=== PATIENT | male | born 1985 | race Hispanic/Latino ===

== ENCOUNTER 2016-08-07 07:42 | Emergency (ER) | payer OTHER ==
[~2016-08-07] VITALS: Ht 188 cm; Wt 86.2 kg
[~2016-08-07 07:42] MED LIST: DICLOFENAC SODI75 M2 PO; LOTRISONE CREAM15 G1 TOP
[2016-08-07 07:50] VITALS: BP 127/88
[2016-08-07 08:17] LABS: ABSOLUTE BASOPHIL COUNT 0 /CUMM (0.0-0.2); ABSOLUTE EOSINOPHIL COUNT 0.1 /CUMM (0.0-0.7); ABSOLUTE GRANULOCYTE CT 5.9 /CUMM (1.4-6.5); ABSOLUTE MONOCYTE COUNT 0.2 /CUMM (0.10-0.60); BASOPHIL % 0 % (0.0-2.0); EOSINOPHIL % 1.3 % (0-5); HEMATOCRIT 44.5 % (42-52); MEAN CORPUSCULAR HGB 30.8 PG (27.0-31.0); MEAN CORPUSCULAR VOLUME 90.7 FL (80.0-94.0); MEAN PLATELET VOLUME 8.7 FL (7.4-10.4); PLATELET COUNT 191 /CUMM (130-400); RED BLOOD CELL CT 4.91 /CUMM (4.70-6.10); WHITE BLOOD CELL COUNT 7.2 /CUMM (4.8-10.8)
--- NOTE | 2016-08-07 08:54 | ED GI/GU/ABDOMINAL COMPLAINT ---
History of Present Illness General Chief Complaint: General Adult Stated Complaint: CHILLS; VOMITIN Vital Signs & Intake/Output Vital Signs & Intake/Output Vital Signs Date Time Temp Pulse Resp B/P B/P Pulse O2 O2 Flow FiO2 Mean Ox Delivery Rate 08/07 749 98.6 69 16 127/88 98 Room Air Allergies Coded Allergies: No Known Allergies (06/07/15) NKA PER ANTIBIOTIC ORDER SHEET OF 06/07/15 ([facility]) Reconcile Medications Diclofenac Sodium 75 MG TABLET.DR 1 TAB PO BID PRN CHEST PAIN Lotrisone (Lotrisone Cream) 15 GM CREAM..G. 1 [place] TOP QAMPM RASH apply to affected area(s) Triage Note: PT STATES HE WOKE UP WITH CHILLS AND FREEZING. PT STATES HE VOMITED 3 TIMES THIS AM. PT DENIES DIARRHEA. Past History Travel History Traveled to [place] past 21 day No Medical History Respiratory: asthma Musculoskeletal: LEFT KNEE acl TEAR Surgical History Surgical History: LEFT KNEE acl RECONSTRUCTION Psychosocial History What is your primary language Amharic Tobacco Use: Never used ETOH Use: occasional use Illicit Drug Use: marijuana Progress Plan of Care: Orders Procedure Date/time Status COMPREHENSIVE METABOLIC PANEL 08/08 751 Complete CBC WITHOUT DIFFERENTIAL 08/08 751 Complete Laboratory Tests 08/07/16 0804: Anion Gap 10, Estimated GFR > 60, BUN/Creatinine Ratio 17.5, Glucose 85, Calcium 9.3, Total Bilirubin 0.9, AST 64 H, ALT 54, Alkaline Phosphatase 73, Total Protein 8.4 H, Albumin 5.2 H, Globulin 3.2, Albumin/Globulin Ratio 1.6, CBC w Diff NO MAN DIFF REQ, RBC 4.91, MCV 90.7, MCH 30.8, RDW 13.0, MPV 8.7, Gran % 82.0 H, Lymphocytes % 14.0 L, Monocytes % 2.7, Eosinophils % 1.3, Basophils % 0 L, Absolute Granulocytes 5.9, Absolute Lymphocytes 1.0 L, Absolute Monocytes 0.2, Absolute Eosinophils 0.1, Absolute Basophils 0, PUBS MCHC 34.0 Departure Departure Condition: Stable Referrals: JOSE R HERNANDEZ DO (PCP/Family) Departure Forms: Customer Survey General Discharge Information
== END 2016-08-07 09:24 | disposition admitted as inpatient to this hospital (09) ==
LOC: ERH 07:42
PROVIDERS: Emergency Medicine
DX: R11.10 Vomiting, unspecified (principal)

== ENCOUNTER 2017-12-03 12:03 | Emergency (ER) | payer OTHER ==
[~2017-12-03] VITALS: Ht 185.4 cm; Wt 93.0 kg
[~2017-12-03 12:03] MED LIST changes: +NAPROSYN500 M1 PO; +ORPHENADRINE C100 MG PO
--- NOTE | 2017-12-03 12:16 | ED GI/GU/ABDOMINAL COMPLAINT ---
History of Present Illness General Chief Complaint: Abdominal Pain/Flank Pain Stated Complaint: HERNIA REPAIR 09/05/16 C/O ABD PAIN Source: patient, old records Exam Limitations: no limitations Vital Signs & Intake/Output Vital Signs & Intake/Output Vital Signs Date Time Temp Pulse Resp B/P B/P Pulse O2 O2 Flow FiO2 Mean Ox Delivery Rate 12/03 1412 97.9 58 18 128/84 99 Room Air 12/03 1247 Room Air Room Air 12/03 1207 98.6 98 18 145/81 98 Room Air Allergies Coded Allergies: No Known Allergies (06/07/15) NKA PER ANTIBIOTIC ORDER SHEET OF 06/07/15 ([facility]) Reconcile Medications Naproxen (Naprosyn) 500 MG TABLET 1 TAB PO BID PAIN Naproxen (Naprosyn) 500 MG TABLET 1 TAB PO BID PRN ankle pain Orphenadrine Citrate 100 MG TABLET.ER 1 TAB PO BID PRN MUSCLE PAIN/SPASMS Triage Note: 32 YO MALE TO TRIAGE FOR EVAL OF L SIDED ABD PAIN X MONTHS. DENIES NVD. STATES HASNT SEEN A DR SINCE THE PAIN STARTED. DENIES URIANRY S/S. STATES HAS ALSO BEEN HAVING PROBLEMS WITH HEMMRROIDS X2 MONTHS. Triage Nurses Notes Reviewed? yes HPI: Patient had a left inguinal hernia repair just over a year ago. Over the past few months he has been getting lower abdominal crampy pain. The pain is been constant. There are no aggravating or mitigating factors. There is no nausea or vomiting. There is no constipation or diarrhea. There is no dysuria. Patient has not seen a doctor yet for it. Patient states he was talking to his friend who told him that he really needs to get evaluated so he decided to come into the emergency department to get it checked. He rates the pain at 3 out of 10. Past History Travel History Traveled to [place] past 21 day No Medical History Any Pertinent Medical History? see below for history Neurological: NONE EENT: NONE Cardiovascular: NONE Respiratory: asthma Gastrointestinal: NONE Hepatic: NONE Renal: NONE Musculoskeletal: LEFT KNEE acl TEAR Psychiatric: NONE Endocrine: NONE Blood Disorders: NONE Cancer(s): NONE INSTRUCTIONAL SUPPORT ASSISTANT/Reproductive: NONE Surgical History Surgical History: LEFT KNEE acl RECONSTRUCTION Psychosocial History What is your primary language Chinese Tobacco Use: Never used ETOH Use: occasional use Illicit Drug Use: denies illicit drug use Family History Hx Contributory? No Review of Systems Review of Systems Constitutional: Reports: no symptoms. EENTM: Reports: no symptoms. Respiratory: Reports: no symptoms. Cardiovascular: Reports: no symptoms. GI: Reports: see HPI, abdominal pain. Genitourinary: Reports: no symptoms. Musculoskeletal: Reports: no symptoms. Skin: Reports: no symptoms. Neurological/Psychological: Reports: no symptoms. Hematologic/Endocrine: Reports: no symptoms. Immunologic/Allergic: Reports: no symptoms. All Other Systems: Reviewed and Negative Physical Exam Physical Exam General Appearance: well developed/nourished, alert, awake, anxious, mild distress Head: atraumatic, normal appearance Eyes: Bilateral: PERRL, EOMI. Ears, Nose, Throat, Mouth: hearing grossly normal, moist mucous membrane Neck: normal inspection, supple, full range of motion Respiratory: normal breath sounds, chest non-tender, no respiratory distress, lungs clear Cardiovascular: regular rate/rhythm, normal peripheral pulses Gastrointestinal: normal bowel sounds, soft, non-tender, no organomegaly Back: normal inspection, normal range of motion Extremities: normal range of motion Neurologic/Psych: no motor/sensory deficits, awake, alert, oriented x 3, normal gait, normal mood/affect Skin: intact, normal color, warm/dry Core Measures ACS in differential dx? No Sepsis Present: No Sepsis Focused Exam Completed? No Progress Differential Diagnosis: bowel obstruction, ischemic bowel, inflamm bowel dis Plan of Care: Orders Procedure Date/time Status URINALYSIS 12/03 1233 Complete COMPREHENSIVE METABOLIC PANEL 12/03 1233 Complete CBC WITHOUT DIFFERENTIAL 12/03 1233 Complete Laboratory Tests 12/03/17 1403: Urine Color YEL, Urine Clarity CLEAR, Urine pH 6.5, Ur Specific [place] <= 1.005 , Urine Protein NEG, Urine Ketones NEG, Urine Nitrite NEG, Urine Bilirubin NEG, Urine Urobilinogen 0.2, Ur Leukocyte Esterase NEG, Ur Microscopic EXAM NOT REQUIRED, Urine Hemoglobin NEG, Urine Glucose NEG 12/03/17 1240: Anion Gap 6, Estimated GFR > 60, BUN/Creatinine Ratio 10.0, Glucose 94, Calcium 9.2, Total Bilirubin 0.6, AST 30, ALT 28, Alkaline Phosphatase 51, Total Protein 7.8, Albumin 4.7, Globulin 3.1, Albumin/Globulin Ratio 1.5, CBC w Diff NO MAN DIFF REQ, RBC 5.03, MCV 90.4, MCH 30.7, MCHC 34.0, RDW 12.9, MPV 8.8, Gran % 62.7, Lymphocytes % 26.5, Monocytes % 7.4, Eosinophils % 3.1, Basophils % 0.3, Absolute Granulocytes 3.6, Absolute Lymphocytes 1.5, Absolute Monocytes 0.4, Absolute Eosinophils 0.2, Absolute Basophils 0 Diagnostic Imaging: Viewed by Me: CT Scan. Discussed w/RAD: CT Scan. Radiology Impression: PATIENT: VA YAO PRESENT AGE: 32 PATIENT ACCOUNT NO: [id number] : 83 LOCATION: [facility] ORDERING PHYSICIAN: Nicolas Finch MD SERVICE DATE: 12/03/17 EXAM TYPE: CAT - CT ABD & PELVIS W IV CONTRAST EXAMINATION: CT ABDOMEN AND PELVIS WITH CONTRAST CLINICAL INFORMATION: Abdominal pain, question inguinal hernia COMPARISON: None TECHNIQUE: Multidetector volumetric imaging was performed of the abdomen and pelvis following IV administration of 95 mL of Optiray 320 intravenous contrast. Sagittal and coronal reformatted images were obtained on the technologist's workstation. DLP: 410 mGy-cm FINDINGS: LUNG BASES: The visualized lung bases are unremarkable. LIVER, GALLBLADDER, AND BILIARY TREE: The liver is normal in size, shape, and attenuation. No focal hepatic lesion or biliary ductal dilatation is present. The gallbladder is unremarkable with no evidence of radiopaque gallstones, gallbladder wall thickening, or obvious pericholecystic inflammatory changes. PANCREAS: Unremarkable. SPLEEN: Unremarkable. ADRENAL GLANDS: Unremarkable. KIDNEYS AND URETERS: The kidneys are normal in size, shape, and attenuation. No hydronephrosis, hydroureter, or calculi seen. No perinephric stranding. BLADDER: Unremarkable. GASTROINTESTINAL TRACT: The small and large bowel are unremarkable. The appendix is unremarkable. No dilated loops of small or large bowel. No intra-abdominal free fluid or free air. ABDOMINAL WALL: There is a tiny fat-containing right-sided inguinal hernia. The left side appears within normal limits. LYMPH NODES: Normal. VASCULAR: Unremarkable. PELVIC VISCERA: Prostate and seminal vesicles appear unremarkable. There is no free fluid in the pelvis. OSSEOUS STRUCTURES: No acute osseous abnormalities. IMPRESSION: Tiny fat-containing right-sided inguinal hernia. Otherwise normal CT of abdomen and pelvis. DICTATED BY: Madelaine Schmidt MD DATE/TIME DICTATED:12/03/171399 SOCK FOLDER:[facility] DATE/TIME TRANSCRIBED:12/03/171399 CONFIDENTIAL, DO NOT COPY WITHOUT APPROPRIATE AUTHORIZATION. <Electronically signed in Other Vendor System> SIGNED BY: Madleaine Schmidt MD 12/03/17 1421 Initial ED EKG: none Departure Departure Disposition: HOME OR SELF CARE Condition: Stable Clinical Impression Primary Impression: Lower abdominal pain, unspecified Secondary Impressions: Right inguinal hernia Referrals: Dewayne SARGENT,Dewayne (PCP/Family) Justen SARGENT,Tim Jurado. Additional Instructions: Follow-up with Dr. Tim Campuzano MD. Return if symptoms worsen or for any concerns. Departure Forms: Customer Survey General Discharge Information
[2017-12-03 13:16] LABS: ABSOLUTE BASOPHIL COUNT 0 /CUMM (0.0-0.2); ABSOLUTE EOSINOPHIL COUNT 0.2 /CUMM (0.0-0.7); ABSOLUTE GRANULOCYTE CT 3.6 /CUMM (1.4-6.5); ABSOLUTE LYMPH COUNT 1.5 /CUMM (1.2-3.4); ABSOLUTE MONOCYTE COUNT 0.4 /CUMM (0.10-0.60); BASOPHIL % 0.3 % (0.0-2.0); EOSINOPHIL % 3.1 % (0-5); GRANULOCYTE % 62.7 % (42.2-75.2); HEMATOCRIT 45.5 % (42-52); MEAN CORPUSCULAR HGB 30.7 PG (27.0-31.0); MEAN CORPUSCULAR VOLUME 90.4 FL (80.0-94.0); MEAN PLATELET VOLUME 8.8 FL (7.4-10.4); PLATELET COUNT 202 /CUMM (130-400); RBC DISTRIBUTION WIDTH 12.9 % (11.5-14.5); RED BLOOD CELL CT 5.03 /CUMM (4.70-6.10); WHITE BLOOD CELL COUNT 5.7 /CUMM (4.8-10.8)
[2017-12-03 14:12] VITALS: BP 128/84
--- NOTE | 2017-12-03 14:21 | CT SCAN REPORT ---
EXAMINATION: CT ABDOMEN AND PELVIS WITH CONTRAST CLINICAL INFORMATION: Abdominal pain, question inguinal hernia COMPARISON: None TECHNIQUE: Multidetector volumetric imaging was performed of the abdomen and pelvis following IV administration of 95 mL of Optiray 320 intravenous contrast. Sagittal and coronal reformatted images were obtained on the technologist's workstation. DLP: 410 mGy-cm FINDINGS: LUNG BASES: The visualized lung bases are unremarkable. LIVER, GALLBLADDER, AND BILIARY TREE: The liver is normal in size, shape, and attenuation. No focal hepatic lesion or biliary ductal dilatation is present. The gallbladder is unremarkable with no evidence of radiopaque gallstones, gallbladder wall thickening, or obvious pericholecystic inflammatory changes. PANCREAS: Unremarkable. SPLEEN: Unremarkable. ADRENAL GLANDS: Unremarkable. KIDNEYS AND URETERS: The kidneys are normal in size, shape, and attenuation. No hydronephrosis, hydroureter, or calculi seen. No perinephric stranding. BLADDER: Unremarkable. GASTROINTESTINAL TRACT: The small and large bowel are unremarkable. The appendix is unremarkable. No dilated loops of small or large bowel. No intra-abdominal free fluid or free air. ABDOMINAL WALL: There is a tiny fat-containing right-sided inguinal hernia. The left side appears within normal limits. LYMPH NODES: Normal. VASCULAR: Unremarkable. PELVIC VISCERA: Prostate and seminal vesicles appear unremarkable. There is no free fluid in the pelvis. OSSEOUS STRUCTURES: No acute osseous abnormalities. IMPRESSION: Tiny fat-containing right-sided inguinal hernia. Otherwise normal CT of abdomen and pelvis.
== END 2017-12-03 14:33 ==
LOC: ERH 12:03
PROVIDERS: Emergency Medicine
DX: K40.90 Unilateral inguinal hernia, without obstruction or gangrene, not specified as recurrent (principal); R10.30 Lower abdominal pain, unspecified
CPT/HCPCS: 74177; 81003